=== PATIENT | female | born 1950 | race Caucasian/White ===

== ENCOUNTER 2019-09-13 16:32 | Emergency (ER) | payer MEDICARE ==
--- NOTE | 2019-09-13 18:39 | PHYS DOC ---
Adult General Chief Complaint Chief Complaint: FLANK PAIN HPI HPI Patient is a 69-year-old female who presents for renal stent placement. Patient was just told by her primary care doctor that she needed to come into the hospital to be evaluated by urology and have stent placement for obstructive uropathy associated with kidney stone. Patient checked into this facility after being told to come to this facility for stent placement. Patient was not aware that this facility no longer has urology coverage and upon being informed that we have no urology coverage, patient has requested to be discharged so that she can present to on her own. She does not wish to be transferred to another facility.[] Review of Systems Review of Systems Constitutional: Denies fever or chills [] Respiratory: Denies cough or shortness of breath [] Cardiovascular: No additional information not addressed in HPI [] : Positive hematuria and right flank pain[] Physical Exam Physical Exam Constitutional: Well developed, well nourished, no acute distress, non-toxic appearance. [] Cardiovascular: Regular rate and rhythm[] Lungs & Thorax: Bilateral breath sounds clear to auscultation [] Abdomen: Bowel sounds normal, soft. [] Neurologic: Alert and oriented X 3, no focal deficits noted. [] EKG EKG [] Radiology/Procedures Radiology/Procedures [] Course & Med Decision Making Course & Med Decision Making Pertinent Labs and Imaging studies reviewed. (See chart for details) In light of misunderstanding, patient has been medically screened but recommend no charge as services are not being performed at this facility. Patient will be driving to emergency room for treatment. Dragon Disclaimer Dragon Disclaimer This electronic medical record was generated, in whole or in part, using a voice recognition dictation system. Departure Departure Impression: Primary Impression: Encounter for medical screening examination Disposition: HOME, SELF-CARE Condition: STABLE Referrals: LANCE PANTOJA MD (PCP) Additional Instructions: Present to emergency room or another facility with urology coverage. NICOLE MARRUFO Jr. DO Sep 13, 2019 18:39
== END 2019-09-13 18:50 | disposition home or self-care (01) ==
LOC: ER 16:32
DX: R31.9 Hematuria, unspecified (principal); R10.9 Unspecified abdominal pain
CPT/HCPCS: 99281